=== PATIENT | female | born 1960 | race Caucasian/White ===

== ENCOUNTER 2020-09-24 15:25 | Emergency (ER) | payer OTHER ==
[~2020-09-24] VITALS: Ht 167.6 cm; Wt 83.9 kg
[2020-09-24] MEDS ORDERED: MECLIZINE HCL 25 MG TABLET PO ONE (16:00)
[2020-09-24] MEDS ORDERED: MECLIZINE HCL 25 MG TABLET ONE (16:11)
[2020-09-24 16:48] LABS: BASOPHILS % (AUTO) 0.3 % (0.0-2.0); EOSINOPHILS % (AUTO) 0.3 % (0.0-7.0); HEMATOCRIT 41.1 % (31.2-41.9); HEMOGLOBIN 13.8 g/dL (10.9-14.3); LYMPHOCYTES % (AUTO) 31.6 % (20.5-51.5); MEAN CORPUSCULAR HEMOGLOBIN 29.2 uug (24.7-32.8); MEAN CORPUSCULAR HGB CONC 34 g/dL (32.3-35.6); MONOCYTES # (AUTO) 0.3 K/uL (2.0-10.0); MONOCYTES % (AUTO) 3.7 % (0.0-11.0); NEUTROPHILS # (AUTO) 6.1 K/uL (1.8-8.9); NEUTROPHILS % (AUTO) 64.1 % (38.5-71.5); PLATELET COUNT (AUTO) 282 K/uL (179-408); RED BLOOD CELL COUNT(AUTO) 4.72 MIL/uL (3.63-4.92); WHITE BLOOD COUNT (AUTO) 9.4 K/uL (3.8-11.8)
[2020-09-24 16:51] LABS: CREATININE 0.6 mg/dL (0.6-1.3); POTASSIUM 4.3 mmol/L (3.5-5.1)
[2020-09-24 16:57] LABS: BILIRUBIN,DIRECT 0.1 mg/dL (0.0-0.2); BILIRUBIN,TOTAL 0.7 mg/dL (0.2-1.0); TOTAL PROTEIN, SERUM 8.1 g/dL (6.4-8.2)
[2020-09-24] MEDS ORDERED: MECL-159 PO (17:13)
[2020-09-24] MEDS ORDERED: ONDA4TAB11 PO (17:13)
--- NOTE | 2020-09-24 17:23 | NUR ---
Patient discharged to home in stable condition. Written and verbal after care instructions given. Patient verbalizes understanding of instructions. Stressed follow up or return to ER for worsening s/s.
[2020-09-24 17:33] VITALS: BP 135/67
== END 2020-09-24 17:30 | disposition home or self-care (01) ==
LOC: ER 15:25
DX: R42 Dizziness and giddiness (principal)
CPT/HCPCS: 36415; 70030-TC; 85025; 93005; A4663; J8597